=== PATIENT | male | born 1985 ===

== ENCOUNTER 2018-08-05 12:00 | Emergency (ER) | payer SELFPAY ==
[2018-08-05] MEDS ORDERED: NA CHLORIDE 0.9% 1,000 ML ONE ×2 (12:56→15:49)
[2018-08-05 13:05] LABS: Absolute Lymphocytes (CBC) 1.8 K/uL (0.7-4.9); Absolute Monocytes 0.4 K/uL (0.1-1.3); Absolute Neutrophil 4.8 K/uL (1.8-8.0); Basophils % 0.3 % (0-1.3); Eosinophils % 2.5 % (0-4.4); Hematocrit 46.5 % (39.6-49.0); Lymphocytes % 25.1 % (15.3-44.8); MPV 8.5 fL (7.6-11.3); Monocytes % 6.1 % (3.3-12.3); RBC Red Blood Cell Count 5.32 M/uL (4.33-5.43)
[2018-08-05 13:15] LABS: ALT/SGPT 22 U/L (12-78); AST/SGOT 14 U/L (15-37); Albumin 3.9 g/dL (3.4-5.0); Alkaline Phosphatase 57 U/L (45-117); BUN Blood Urea Nitrogen 13 mg/dL (7-18); Bicarbonate 29 mmol/L (21-32); Bilirubin Direct 0.3 mg/dL (0-0.2); Bilirubin Total 1.4 mg/dL (0.2-1.0); Glucose Level 104 mg/dL (74-106); Lipase 74 U/L (73-393); Potassium 3.9 mmol/L (3.5-5.1); Protein, Total 7.2 g/dL (6.4-8.2); Sodium Level 140 mmol/L (136-145)
[2018-08-05] MEDS ORDERED: ONDANSETRON 4 MG/2 ML VIAL ONE (13:26)
[2018-08-05] MEDS ORDERED: MORPHINE 4 MG/ML SYR ONE (13:27)
--- NOTE | 2018-08-05 13:38 | RAD REPORT ---
EXAM DESCRIPTION: CT - Abdomen Pelvis W Contrast - 08/05/2018 1:09 pm CLINICAL HISTORY: Abdominal pain/left upper quadrant pain COMPARISON: none. TECHNIQUE: Computed axial tomography of the abdomen pelvis was obtained. 100 cc Isovue-300 was admin istered intravenously. Oral contrast was not requested which limits evaluation of bowel. All CT scans are performed using dose optimization technique as appropriate and may include automated exposure control or mA/KV adjustment according to patient size. FINDINGS: The liver, spleen, pancreas, adrenal and kidneys appear unremarkable. There is no evidence of diverticulitis. A normal appendix Gallstones without gallbladder wall thickening IMPRESSION: Cholelithiasis without evidence cholecystitis
--- NOTE | 2018-08-05 14:35 | RAD REPORT ---
EXAM DESCRIPTION: CT - Head Brain Wo Cont - 08/05/2018 2:12 pm CLINICAL HISTORY: Dizziness COMPARISON: None. TECHNIQUE: Computed axial tomography of the head was obtained. IV contrast was not requested. All CT scans are performed using dose optimization technique as appropriate and may include automated exposure control or mA/KV adjustment according to patient size. FINDINGS: An intracranial bleed is not seen . The ventricles are normal in caliber. No extra-axial fluid collection is noted. Fluid within the sinuses/ mastoids is not seen. IMPRESSION: No acute intracranial abnormality is seen. If patient's symptoms persist MRI of the bra in would be recommended.
[2018-08-05] MEDS ORDERED: KETOROLAC 30 MG/ML INJ ONE (15:08)
[2018-08-05] MEDS ORDERED: PROMETHAZINE 25 MG/ML VIAL ONE (15:08)
[2018-08-05] MEDS ORDERED: MECLIZINE HCL 12.5 MG TAB ONE ×2 (15:49→16:27)
--- NOTE | 2018-08-05 16:23 | ER ---
Nurse's Notes [facility] Name: Jorgito Clark Age: 32 yrs Sex: Male : 1985 Arrival Date: 08/05/2018 Time: 12:04 Bed 17 Private MD: Diagnosis: Dehydration;Vertigo of central origin Presentation: 08/05 12:15 Presenting complaint: Patient states: HEADACHE, LUQ PAIN, AND GENERALIZED WEAKNESS x1 bp WEEK. Transition of care: patient was not received from another setting of care. Onset of symptoms is unknown. Risk Assessment: Do you want to hurt yourself or someone else? Patient reports no desire to harm self or others. Initial Sepsis Screen: Does the patient meet any 2 criteria? No. Patient's initial sepsis screen is negative. Does the patient have a suspected source of infection? No. Patient's initial sepsis screen is negative. Care prior to arrival: None. 12:15 Method Of Arrival: Ambulatory bp 12:15 Acuity: TRACEY 3 bp Triage Assessment: 12:16 Headache History: Denies prior headaches. General: Appears in no apparent distress. bp comfortable, Behavior is cooperative, appropriate for age, anxious. Pain: Complains of pain in head and abdomen Pain currently is 4 out of 10 on a pain scale. Pain began 2-3 days ago. Also complains of decreased appetite. Neuro: Level of Consciousness is awake, alert, obeys commands, Oriented to person, place, time, situation, Appropriate for age. Historical: - Allergies: 12:16 No Known Allergies; bp - Home Meds: 12:16 None [Active]; bp - PMHx: 12:16 None; bp - Immunization history:: Adult Immunizations. - Social history:: Smoking status: Patient/guardian denies using tobacco. - Ebola Screening: : No symptoms or risks identified at this time. Screenin:50 Abuse screen: Denies threats or abuse. Nutritional screening: No deficits noted. em Tuberculosis screening: No symptoms or risk factors identified. Fall Risk None identified. Assessment: 12:50 General: Appears in no apparent distress. uncomfortable, Behavior is calm, cooperative, em Denies fever. Pain: Complains of pain in left lower quadrant and head Pain currently is 8 out of 10 on a pain scale. Neuro: Level of Consciousness is awake, alert, obeys commands, Oriented to person, place, time, situation, Retail Advertising Sales Manager are equal bilaterally Moves all extremities. Gait is steady, Facial symmetry appears normal, Reports dizziness, headache. Cardiovascular: Capillary refill < 3 seconds Patient's skin is warm and dry. Respiratory: Airway is patent Respiratory effort is even, unlabored, Respiratory pattern is regular, symmetrical. GI: Abdomen is flat, Abd is soft X 4 quads Abdomen is tender to palpation in left lower quadrant. : Reports pain lower quadrant(s) that goes into testicles Denies burning with urination, pain with urination. Derm: Skin is intact, is healthy with good turgor, Skin is pink, warm \T\ dry. Musculoskeletal: Capillary refill < 3 seconds, Range of motion: intact in all extremities. 12:55 General: The previous assessment is accurate, call light remains within reach. ss 13:57 Reassessment: Patient appears in no apparent distress at this time. Patient and/or em family updated on plan of care and expected duration. Pain level reassessed. Patient is alert, oriented x 3, equal unlabored respirations, skin warm/dry/pink. rates pain 4/10 Patient states feeling better. 15:30 Reassessment: Patient appears in no apparent distress at this time. Patient and/or em family updated on plan of care and expected duration. Pain level reassessed. Patient is alert, oriented x 3, equal unlabored respirations, skin warm/dry/pink. reports headache is better, but dizziness has not improved, provider notified, new medication orders received. 16:26 Reassessment: Patient appears in no apparent distress at this time. Patient and/or em family updated on plan of care and expected duration. Pain level reassessed. Patient is alert, oriented x 3, equal unlabored respirations, skin warm/dry/pink. Patient states feeling better. Patient states symptoms have improved. Vital Signs: 12:16 BP 147 / 85; Pulse 77; Resp 16; Temp 98.5; Pulse Ox 100% ; Weight 63.5 kg; Height 5 ft. bp 4 in. (162.56 cm); 13:50 BP 131 / 82; Pulse 66; Resp 16; Temp 98.6(O); Pulse Ox 99% on R/A; mh5 15:07 BP 129 / 83; Pulse 79; Resp 16; Temp 97.9(O); Pulse Ox 99% on R/A; mh5 16:12 BP 133 / 91; Pulse 75; Resp 17; Temp 98.1(O); Pulse Ox 100% on R/A; mh5 12:16 Body Mass Index 24.03 (63.50 kg, 162.56 cm) bp ED Course: 12:04 Patient arrived in ED. tw3 12:12 [facility] nh 12:12 Ze Ortiz MD is Attending Physician. nh 12:16 Triage completed. bp 12:16 Arm band placed on. bp 12:23 Surya Candelario LVN is Primary Nurse. em 12:45 Initial lab(s) drawn, by me, sent to lab. Inserted saline lock: 20 gauge in right em antecubital area, using aseptic technique. Blood collected. 12:50 Patient has correct armband on for positive identification. Bed in low position. Call em light in reach. Adult w/ patient. Pulse ox on. NIBP on. 13:09 CT completed. Patient tolerated procedure well. Patient moved back from CT. bq 13:11 CT Abd/Pelvis - W/Contrast In Process Unspecified. EDMS 14:12 CT completed. Patient tolerated procedure well. Patient moved back from CT. mw3 14:13 CT Head Brain wo Cont In Process Unspecified. EDMS 16:11 EKG done, by ED staff, reviewed by Amy JOSEPH. 5 16:35 No provider procedures requiring assistance completed. IV discontinued, intact, em bleeding controlled, No redness/swelling at site. Pressure dressing applied. Administered Medications: 12:50 Drug: NS 0.9% 1000 ml Route: IV; Rate: 1 bolus; Site: right antecubital; em 14:00 Follow up: IV Status: Completed infusion; IV Intake: 1000ml em 13:20 Drug: Zofran 4 mg Route: IVP; Site: right antecubital; ss 14:08 Follow up: Response: No adverse reaction; Nausea is decreased em 13:22 Drug: morphine 4 mg Route: IVP; Site: right antecubital; ss 14:08 Follow up: Response: No adverse reaction; Pain is decreased em 14:58 Drug: Phenergan 12.5 mg Route: IVP; Site: right antecubital; ss 15:40 Follow up: Response: No adverse reaction em 15:00 Drug: TORadol 30 mg Route: IVP; Site: right antecubital; ss 15:39 Follow up: Response: No adverse reaction; Pain is decreased em 15:40 Drug: NS 0.9% 1000 ml Route: IV; Rate: 1 bolus; Site: right antecubital; em 16:19 Follow up: IV Status: Completed infusion; IV Intake: 1000ml em 15:41 Drug: Meclizine 25 mg Route: PO; em 16:20 Follow up: Response: No adverse reaction em 16:15 Drug: Meclizine 25 mg Route: PO; em 16:38 Follow up: Response: No adverse reaction; Marked relief of symptoms em Intake: 14:00 IV: 1000ml; Total: 1000ml. em 16:19 IV: 1000ml; Total: 2000ml. em Outcome: 16:23 Discharge ordered by MD. nh 16:35 Discharged to home ambulatory, with family. em 16:35 Condition: good 16:35 Discharge instructions given to patient, family, Instructed on discharge instructions, follow up and referral plans. medication usage, Demonstrated understanding of instructions, follow-up care, medications, Prescriptions given X 1. 16:39 Patient left the ED. em Signatures: Dispatcher [employer] EDMS Amy Haider, ONLINE BANKING SPECIALIST ONLINE BANKING SPECIALIST fl Jenny Patel [employer], Surya, SENIOR BUSINESS DEVELOPMENT MANAGER SENIOR BUSINESS DEVELOPMENT MANAGER em Jenna Snyder, RN RN Deana Yousif 5 Fransico, Vivian tw3 Dustin Arnold RN RN bp Willis, Michelle mw3 Corrections: (The following items were deleted from the chart) 13:52 13:50 BP 131 / 82; Pulse 66bpm; Resp 16bpm; Pulse Ox 99% RA; mh5 mh5 16:21 12:50 Neuro: Level of Consciousness is awake, alert, obeys commands, Oriented to em person, place, time, situation, Retail Advertising Sales Manager are equal bilaterally Moves all extremities. Gait is steady, Facial symmetry appears normal, Reports headache Denies dizziness, em 16:22 16:20 Reassessment: reports headache is better, but dizziness is the same em em
--- NOTE | 2018-08-05 16:23 | EDPHYS ---
Physician Documentation [facility] Name: Jorgito Clark Age: 32 yrs Sex: Male : 1985 Arrival Date: 08/05/2018 Time: 12:04 Bed 17 Private MD: ED Physician Ze Ortiz HPI: 08/05 13:45 This 32 yrs old Male presents to ER via Ambulatory with complaints of Headache, nh Abdominal Pain. 14:48 The patient complains of pain to the top of head. nh 16:19 The patient describes the headache as constant. Onset: The symptoms/episode nh began/occurred this morning. Associated signs and symptoms: Pertinent positives: dizziness, nausea. Severity of symptoms: At its worst the pain was mild, in the emergency department the pain has resolved. The symptoms are alleviated by nothing. the symptoms are aggravated by nothing. The patient has not experienced similar symptoms in the past. The patient has not recently seen a physician. Historical: - Allergies: 12:16 No Known Allergies; bp - Home Meds: 12:16 None [Active]; bp - PMHx: 12:16 None; bp - Immunization history:: Adult Immunizations. - Social history:: Smoking status: Patient/guardian denies using tobacco. - Ebola Screening: : No symptoms or risks identified at this time. ROS: 16:19 Constitutional: Negative for fever, chills, and weight loss, Eyes: Negative for injury, nh pain, redness, and discharge, ENT: Negative for injury, pain, and discharge, Neck: Negative for injury, pain, and swelling, Cardiovascular: Negative for chest pain, palpitations, and edema, Respiratory: Negative for shortness of breath, cough, wheezing, and pleuritic chest pain, Back: Negative for injury and pain, : Negative for injury, bleeding, discharge, and swelling, MS/Extremity: Negative for injury and deformity, Skin: Negative for injury, rash, and discoloration, Psych: Negative for depression, anxiety, suicide ideation, homicidal ideation, and hallucinations, Allergy/Immunology: Negative for hives, rash, and allergies, Endocrine: Negative for neck swelling, polydipsia, polyuria, polyphagia, and marked weight changes, Hematologic/Lymphatic: Negative for swollen nodes, abnormal bleeding, and unusual bruising. 16:19 Abdomen/GI: Positive for abdominal pain, nausea and vomiting. 16:19 Neuro: Positive for dizziness, headache. Exam: 16:19 Constitutional: This is a well developed, well nourished patient who is awake, alert, nh and in no acute distress. Head/Face: Normocephalic, atraumatic. Eyes: Pupils equal round and reactive to light, extra-ocular motions intact. Lids and lashes normal. Conjunctiva and sclera are non-icteric and not injected. Cornea within normal limits. Periorbital areas with no swelling, redness, or edema. ENT: Nares patent. No nasal discharge, no septal abnormalities noted. Tympanic membranes are normal and external auditory canals are clear. Oropharynx with no redness, swelling, or masses, exudates, or evidence of obstruction, uvula midline. Mucous membranes moist. Neck: Trachea midline, no thyromegaly or masses palpated, and no cervical lymphadenopathy. Supple, full range of motion without nuchal rigidity, or vertebral point tenderness. No Meningismus. Chest/axilla: Normal chest wall appearance and motion. Nontender with no deformity. No lesions are appreciated. Cardiovascular: Regular rate and rhythm with a normal S1 and S2. No gallops, murmurs, or rubs. Normal PMI, no JVD. No pulse deficits. Respiratory: Lungs have equal breath sounds bilaterally, clear to auscultation and percussion. No rales, rhonchi or wheezes noted. No increased work of breathing, no retractions or nasal flaring. Abdomen/GI: Soft, non-tender, with normal bowel sounds. No distension or tympany. No guarding or rebound. No evidence of tenderness throughout. Back: No spinal tenderness. No costovertebral tenderness. Full range of motion. Skin: Warm, dry with normal turgor. Normal color with no rashes, no lesions, and no evidence of cellulitis. MS/ Extremity: Pulses equal, no cyanosis. Neurovascular intact. Full, normal range of motion. Neuro: Awake and alert, GCS 15, oriented to person, place, time, and situation. Cranial nerves II-XII grossly intact. Motor strength 5/5 in all extremities. Sensory grossly intact. Cerebellar exam normal. Normal gait. Vital Signs: 12:16 BP 147 / 85; Pulse 77; Resp 16; Temp 98.5; Pulse Ox 100% ; Weight 63.5 kg; Height 5 ft. bp 4 in. (162.56 cm); 13:50 BP 131 / 82; Pulse 66; Resp 16; Temp 98.6(O); Pulse Ox 99% on R/A; mh5 15:07 BP 129 / 83; Pulse 79; Resp 16; Temp 97.9(O); Pulse Ox 99% on R/A; mh5 16:12 BP 133 / 91; Pulse 75; Resp 17; Temp 98.1(O); Pulse Ox 100% on R/A; mh5 12:16 Body Mass Index 24.03 (63.50 kg, 162.56 cm) bp MDM: 12:12 Patient medically screened. nh 16:19 Data reviewed: vital signs, nurses notes, lab test result(s), radiologic studies, I nh have discussed the patient's presentation/case with the attending Emergency Department Physician; and as a result, I will discharge patient. Counseling: I had a detailed discussion with the patient and/or guardian regarding: the historical points, exam findings, and any diagnostic results supporting the discharge/admit diagnosis, lab results, radiology results, the need for outpatient follow up, to return to the emergency department if symptoms worsen or persist or if there are any questions or concerns that arise at home. Response to treatment: the patient's symptoms have resolved after treatment. 08/05 12:24 Order name: Basic Metabolic Panel; Complete Time: 13:17 oh 08/05 12:24 Order name: CBC with Diff; Complete Time: 13:08 oh 08/05 12:24 Order name: Creatinine for Radiology; Complete Time: 13:17 oh 08/05 12:24 Order name: Hepatic Function; Complete Time: 13:17 oh 08/05 12:24 Order name: Lipase; Complete Time: 13:17 oh 08/05 12:24 Order name: CT Abd/Pelvis - W/Contrast; Complete Time: 13:43 oh 08/05 13:50 Order name: CT Head Brain wo Cont; Complete Time: 14:39 oh 08/05 12:24 Order name: IV Saline Lock; Complete Time: 12:49 oh 08/05 12:24 Order name: Labs collected and sent; Complete Time: 12:49 oh 08/05 15:40 Order name: EKG - Nurse/Tech; Complete Time: 16:20 em Administered Medications: 12:50 Drug: NS 0.9% 1000 ml Route: IV; Rate: 1 bolus; Site: right antecubital; em 14:00 Follow up: IV Status: Completed infusion; IV Intake: 1000ml em 13:20 Drug: Zofran 4 mg Route: IVP; Site: right antecubital; ss 14:08 Follow up: Response: No adverse reaction; Nausea is decreased em 13:22 Drug: morphine 4 mg Route: IVP; Site: right antecubital; ss 14:08 Follow up: Response: No adverse reaction; Pain is decreased em 14:58 Drug: Phenergan 12.5 mg Route: IVP; Site: right antecubital; ss 15:40 Follow up: Response: No adverse reaction em 15:00 Drug: TORadol 30 mg Route: IVP; Site: right antecubital; ss 15:39 Follow up: Response: No adverse reaction; Pain is decreased em 15:40 Drug: NS 0.9% 1000 ml Route: IV; Rate: 1 bolus; Site: right antecubital; em 16:19 Follow up: IV Status: Completed infusion; IV Intake: 1000ml em 15:41 Drug: Meclizine 25 mg Route: PO; em 16:20 Follow up: Response: No adverse reaction em 16:15 Drug: Meclizine 25 mg Route: PO; em 16:38 Follow up: Response: No adverse reaction; Marked relief of symptoms em Disposition: 08/06 07:59 Co-signature as Attending Physician, Ze Ortiz MD I agree with the assessment and andrew plan of care. Disposition: 08/05/18 16:23 Discharged to Home. Impression: Dehydration, Vertigo of central origin. - Condition is Stable. - Discharge Instructions: Dehydration, Adult. - Prescriptions for Meclizine 25 mg Oral Tablet - take 1 tablet by ORAL route every 8 hours As needed; 30 tablet. - Medication Reconciliation Form, Thank You Letter, Antibiotic Education, Prescription Opioid Use form. - Follow up: Private Physician; When: 5 - 6 days; Reason: Recheck today's complaints. - Problem is new. - Symptoms are unchanged. Signatures: Dispatcher [employer] Ze Paredes MD MD cha Cronk, Niki, BLEACHER LARD BLEACHER LARD oh Surya Candelario, AGENCY APPOINTMENTS SUPERVISOR AGENCY APPOINTMENTS SUPERVISOR em Smirch, Jenna, RN Dusitn Westfall RN RN bp Corrections: (The following items were deleted from the chart) 08/05 16:39 16:23 08/05/2018 16:23 Discharged to Home. Impression: Dehydration; Vertigo of central em origin. Condition is Stable. Forms are Medication Reconciliation Form, Thank You Letter, Antibiotic Education, Prescription Opioid Use. Follow up: Private Physician; When: 5 - 6 days; Reason: Recheck today's complaints. Problem is new. Symptoms are unchanged. nh
--- NOTE | 2018-08-06 07:57 | EKG ---
Test Date: 2018-08-05 Test Time: 15:45:47 Host: KARLA MEASUREMENT RESULTS: Intervals: Rate: 60 MS: 150 QRSD: 96 QT: 390 QTc: 390 [place]: P: 68 MS: 150 QRS: 59 T: 40 INTERPRETIVE STATEMENTS: Normal sinus rhythm Normal ECG No previous ECG available for comparison Electronically Signed On 08-06-18 07:57:02 CDT by Esequiel Dietrich
== END 2018-08-05 16:39 | disposition home or self-care (01) ==
LOC: ER 12:00
DX: E86.0 Dehydration (principal); H81.49 Vertigo of central origin, unspecified ear
CPT/HCPCS: 36415; 70450; 74177; 80048; 80076; 83690; 85025; 93005; 96361; 96374; 96375; 99285; J2405; J2550; J7030; Q9967

== ENCOUNTER 2018-12-01 22:48 | Emergency (ER) | payer SELFPAY ==
[2018-12-02] MEDS ORDERED: MORPHINE 2 MG/ML SYR ONE (00:03)
[2018-12-02] MEDS ORDERED: ONDANSETRON 4 MG/2 ML VIAL ONE (00:03)
[2018-12-02] MEDS ORDERED: NA CHLORIDE 0.9% 1,000 ML ONE (00:04)
[2018-12-02 00:13] LABS: Absolute Lymphocytes (CBC) 2.4 K/uL (0.7-4.9); Basophils % 0.6 % (0-1.3); Hematocrit 43.5 % (39.6-49.0); Lymphocytes % 34.3 % (15.3-44.8); MPV 8.4 fL (7.6-11.3); RBC Red Blood Cell Count 5.04 M/uL (4.33-5.43)
[2018-12-02 00:24] LABS: Potassium 3.3 mmol/L (3.5-5.1)
[2018-12-02 00:27] LABS: Albumin 4.1 g/dL (3.4-5.0)
[2018-12-02 00:29] LABS: Bilirubin Direct 0.4 mg/dL (0-0.2)
[2018-12-02 00:31] LABS: Bilirubin Total 2.2 mg/dL (0.2-1.0); Protein, Total 7.2 g/dL (6.4-8.2)
[2018-12-02 01:18] LABS: Urine Blood TRACE (NEG); Urine Glucose NEGATIVE (NEG); Urine Protein NEGATIVE (NEG); Urine Specific Gravity 1.015 (1.005-1.030); Urine pH 6.5 (5.0-7.0)
--- NOTE | 2018-12-02 03:15 | ER ---
Nurse's Notes [facility] Name: Jorgito Clark Age: 33 yrs Sex: Male : 1985 Arrival Date: 12/01/2018 Time: 23:03 Bed 6 Private MD: Diagnosis: Abdominal and pelvic pain Presentation: 12/01 23:08 Presenting complaint: Patient states: kevin been vomiting with left lower abdominal pain mg2 radiating to the back for 9 days. Transition of care: patient was not received from another setting of care. Onset of symptoms was November 2018. Risk Assessment: Do you want to hurt yourself or someone else? Patient reports no desire to harm self or others. Initial Sepsis Screen: Does the patient meet any 2 criteria? No. Patient's initial sepsis screen is negative. Does the patient have a suspected source of infection? No. Patient's initial sepsis screen is negative. Care prior to arrival: None. 23:08 Method Of Arrival: Ambulatory mg2 23:08 Acuity: TRACEY 3 mg2 Triage Assessment: 23:48 General: Appears in no apparent distress. uncomfortable, Behavior is calm, cooperative, cc3 appropriate for age. Pain: Complains of pain in abdomen. GI: Abdomen is round non-distended. Historical: - Allergies: 23:07 No Known Allergies; mg2 - PSHx: 23:07 None; mg2 - Immunization history:: Adult Immunizations not up to date. - Social history:: Smoking status: Patient/guardian denies using tobacco, Patient/guardian denies using alcohol, street drugs, IV drugs. - Ebola Screening: : No symptoms or risks identified at this time. Screenin:06 Abuse screen: Denies threats or abuse. Denies injuries from another. Nutritional mg2 screening: No deficits noted. Tuberculosis screening: No symptoms or risk factors identified. 23:48 Fall Risk Ambulatory Aid- None/Bed Rest/Nurse Assist (0 pts). Gait- Normal/Bed cc3 Rest/Wheelchair (0 pts) Mental Status- Oriented to own ability (0 pts). Assessment: 23:48 General: Appears in no apparent distress. uncomfortable, Behavior is calm, cooperative, cc3 appropriate for age. Pain: Complains of pain in left side abdomen. Neuro: Level of Consciousness is awake, alert, obeys commands, Oriented to person, place, time, situation, Appropriate for age. Cardiovascular: Denies chest pain, Heart tones S1 S2 present Capillary refill < 3 seconds in bilateral fingers Patient's skin is warm and dry. Rhythm is regular. Respiratory: Airway is patent Respiratory effort is even, unlabored, Respiratory pattern is regular, symmetrical. GI: Abdomen is round non-distended, Bowel sounds present X 4 quads. Abd is soft X 4 quads Abdomen is tender to palpation in left side abdomen. : No signs and/or symptoms were reported regarding the genitourinary system. EENT: No signs and/or symptoms were reported regarding the EENT system. Derm: Skin is intact, is healthy with good turgor, Skin is pink, warm \T\ dry. normal. Musculoskeletal: Circulation, motion, and sensation intact. Range of motion: intact in all extremities. 12/02 00:18 Reassessment: Patient appears in no apparent distress at this time. Patient and/or cc3 family updated on plan of care and expected duration. Pain level reassessed. Patient is alert, oriented x 3, equal unlabored respirations, skin warm/dry/pink. 01:40 Reassessment: Patient appears in no apparent distress at this time. Patient and/or cc3 family updated on plan of care and expected duration. Pain level reassessed. Patient is alert, oriented x 3, equal unlabored respirations, skin warm/dry/pink. Patient taken by network operations center technician to their department by wheelchair. Patient states feeling better. Patient states symptoms have improved. 02:00 Reassessment: Patient appears in no apparent distress at this time. Patient and/or cc3 family updated on plan of care and expected duration. Pain level reassessed. Patient is alert, oriented x 3, equal unlabored respirations, skin warm/dry/pink. Patient came back from CT scan department, awaiting result. 03:00 Reassessment: Patient appears in no apparent distress at this time. Patient and/or cc3 family updated on plan of care and expected duration. Pain level reassessed. Patient is alert, oriented x 3, equal unlabored respirations, skin warm/dry/pink. Hank reassessed the patient with DOLORES Swenson as the staffing consultant and the patient said he is having intermittent scrotal pain for a week. KAI Mcclain said he'll order for an ultrasound for the patient. 03:25 Reassessment: Patient appears in no apparent distress at this time. Patient and/or cc3 family updated on plan of care and expected duration. Pain level reassessed. Patient is alert, oriented x 3, equal unlabored respirations, skin warm/dry/pink. KIA Mcclain didn't order for an ultrasound and discharged the patient home, no prescription given. IV cannula removed and patient left ER vitally stable and ambulatory. No valuables left in the patient's room. Patient states feeling better. Patient states symptoms have improved. Vital Signs: 12/01 23:03 BP 131 / 81; Pulse 77; Resp 18; Temp 98.9; Pulse Ox 99% on R/A; mg2 12/02 00:18 BP 117 / 78; Pulse 66; Resp 17 S; Pulse Ox 97% on R/A; cc3 01:14 BP 123 / 78; Pulse 61; Resp 17 S; Pulse Ox 100% on R/A; cc3 02:18 BP 118 / 73; Pulse 65; Resp 16 S; Pulse Ox 99% on R/A; cc3 03:12 BP 121 / 82; Pulse 63; Resp 16 S; Pulse Ox 100% on R/A; Pain 0/10; cc3 ED Course: 12/01 23:03 Patient arrived in ED. cf2 23:03 Arm band placed on. mg2 23:10 Triage completed. mg2 23:24 Hank Mcclain PA is PHCP. jmm 23:24 Andre Narvaez MD is Attending Physician. jmm 23:48 Maribel Johnson is Primary Nurse. cc3 23:48 Patient has correct armband on for positive identification. Placed in gown. Bed in low cc3 position. Call light in reach. Side rails up X 1. Pulse ox on. NIBP on. 12/02 00:06 Inserted saline lock: 20 gauge in right forearm, using aseptic technique. Blood oe collected. 02:05 CT Abd/Pelvis - IV Contrast Only In Process Unspecified. EDMS 03:14 Teo Gabriel MD is Referral Physician. jmm 03:25 No provider procedures requiring assistance completed. IV discontinued, intact, cc3 bleeding controlled, No redness/swelling at site. Pressure dressing applied. Administered Medications: 00:00 Drug: NS 0.9% 1000 ml Route: IV; Rate: 1 bolus; Site: right antecubital; cc3 01:00 Follow up: Response: No adverse reaction; IV Status: Completed infusion; IV Intake: cc3 1000ml 00:00 Drug: morphine 2 mg {Note: RASS 0.} Route: IVP; Site: right antecubital; cc3 00:30 Follow up: Response: No adverse reaction; Pain is decreased; RASS: Alert and Calm (0) cc3 00:05 Drug: Zofran 4 mg Route: IVP; Site: right antecubital; cc3 00:30 Follow up: Response: No adverse reaction; Nausea is decreased cc3 Intake: 01:00 IV: 1000ml; Total: 1000ml. cc3 Outcome: 03:14 Discharge ordered by MD. fátima 03:25 Discharged to home ambulatory. cc3 03:25 Condition: stable 03:25 Discharge instructions given to patient, Instructed on discharge instructions, follow up and referral plans. Demonstrated understanding of instructions, follow-up care. 03:28 Patient left the ED. cc3 Signatures: Dispatcher [employer] EDMS Hank Mcclain PA PA jmm Espinosa, Orlando oe Gardose, Michele, DOLORES RN mg2 Maribel Johnson cc3 Jh Roche cf2 Corrections: (The following items were deleted from the chart) 12/01 23:08 23:08 General: Appears mg2 mg2 12/02 03:38 03:00 Reassessment: Patient appears in no apparent distress at this time. Patient cc3 and/or family updated on plan of care and expected duration. Pain level reassessed. Patient is alert, oriented x 3, equal unlabored respirations, skin warm/dry/pink. Hank reassessed the patient with DOLORES Swenson as the staffing consultant and the patient said he is having scrotal pain for a week. KAI Mcclain said he'll order for an ultrasound for the patient. cc3 03:38 03:25 Reassessment: Patient appears in no apparent distress at this time. Patient cc3 and/or family updated on plan of care and expected duration. Pain level reassessed. Patient is alert, oriented x 3, equal unlabored respirations, skin warm/dry/pink. KAI Mcclain didn't order for an ultrasound and discharged the patient home, no prescription given. IV cannula removed and patient left ER vitally stable and ambulatory. No valuables left in the patient's room. cc3
--- NOTE | 2018-12-02 03:15 | EDPHYS ---
Physician Documentation [facility] Name: Jorgito Clark Age: 33 yrs Sex: Male : 1985 Arrival Date: 12/01/2018 Time: 23:03 Bed 6 Private MD: ED Physician Andre Narvaez HPI: 12/01 23:48 This 33 yrs old Male presents to ER via Ambulatory with complaints of Abdominal Pain. jmm 23:48 The patient presents with abdominal pain in the lower abdomen. Onset: The jmm symptoms/episode began/occurred gradually, 9 day(s) ago. The symptoms radiate to pelvis. Associated signs and symptoms: Pertinent positives: nausea, testicular pain, Pertinent negatives: diarrhea, fever, vomiting. The symptoms are described as achy, intermittent. Modifying factors: The symptoms are alleviated by nothing, the symptoms are aggravated by nothing. The patient has experienced a previous episode. Historical: - Allergies: 23:07 No Known Allergies; mg2 - PSHx: 23:07 None; mg2 - Immunization history:: Adult Immunizations not up to date. - Social history:: Smoking status: Patient/guardian denies using tobacco, Patient/guardian denies using alcohol, street drugs, IV drugs. - Ebola Screening: : No symptoms or risks identified at this time. ROS: 23:48 Constitutional: Negative for fever, chills, and weight loss, Cardiovascular: Negative jmm for chest pain, palpitations, and edema, Respiratory: Negative for shortness of breath, cough, wheezing, and pleuritic chest pain. 23:48 Abdomen/GI: Positive for abdominal pain. 23:48 : Positive for testicular pain 23:48 All other systems are negative. Exam: 23:48 Constitutional: This is a well developed, well nourished patient who is awake, alert, jmm and in no acute distress. Head/Face: atraumatic. Eyes: EOMI, no conjunctival erythema appreciated ENT: Moist Mucus Membranes Neck: Trachea midline, Supple Chest/axilla: Normal chest wall appearance and motion. Cardiovascular: Regular rate and rhythm. No edema appreciated Respiratory: Normal respirations, no respiratory distress appreciated 23:48 MS/ Extremity: Moves all extremities, no obvious deformities appreciated, no edema noted to the lower extremities Neuro: Awake and alert, normal gait Psych: Behavior is normal, Mood is normal, Patient is cooperative and pleasant 23:48 Abdomen/GI: Inspection: abdomen appears normal, Bowel sounds: normal, Palpation: soft, mild abdominal tenderness, in the left lower quadrant. 23:48 : Male external genitalia: normal, no tenderness, swelling: is not appreciated. Vital Signs: 23:03 BP 131 / 81; Pulse 77; Resp 18; Temp 98.9; Pulse Ox 99% on R/A; mg2 12/02 00:18 BP 117 / 78; Pulse 66; Resp 17 S; Pulse Ox 97% on R/A; cc3 01:14 BP 123 / 78; Pulse 61; Resp 17 S; Pulse Ox 100% on R/A; cc3 02:18 BP 118 / 73; Pulse 65; Resp 16 S; Pulse Ox 99% on R/A; cc3 03:12 BP 121 / 82; Pulse 63; Resp 16 S; Pulse Ox 100% on R/A; Pain 0/10; cc3 MDM: 12/01 23:48 Patient medically screened. [facility] 12/02 03:12 Data reviewed: vital signs, nurses notes. Counseling: I had a detailed discussion with fátima the patient and/or guardian regarding: the historical points, exam findings, and any diagnostic results supporting the discharge/admit diagnosis, radiology results, the need for outpatient follow up, to return to the emergency department if symptoms worsen or persist or if there are any questions or concerns that arise at home. ED course: Pain decreased in the ED. Ct abd and pelvis negative for an acute process. patient advised to follow up gi for reevaluation. patient understood and agrees with the plan of care. . 12/01 23:51 Order name: Basic Metabolic Panel; Complete Time: 00:48 [facility] 12/01 23:51 Order name: CBC with Diff [facility] 12/01 23:51 Order name: Creatinine for Radiology; Complete Time: 00:48 [facility] 12/01 23:51 Order name: Hepatic Function; Complete Time: 00:48 [facility] 12/01 23:51 Order name: Lipase; Complete Time: 00:48 [facility] 12/02 00:54 Order name: Urine Dipstick--Ancillary (enter results); Complete Time: 01:43 12/01 23:51 Order name: IV Saline Lock; Complete Time: 00:10 [facility] 12/01 23:51 Order name: Labs collected and sent; Complete Time: 00:10 [facility] 12/01 23:51 Order name: Urine Dipstick-Ancillary (obtain specimen); Complete Time: 00:51 [facility] 12/01 23:51 Order name: CT Abd/Pelvis - IV Contrast Only [facility] Administered Medications: 00:00 Drug: NS 0.9% 1000 ml Route: IV; Rate: 1 bolus; Site: right antecubital; cc3 01:00 Follow up: Response: No adverse reaction; IV Status: Completed infusion; IV Intake: cc3 1000ml 00:00 Drug: morphine 2 mg {Note: RASS 0.} Route: IVP; Site: right antecubital; cc3 00:30 Follow up: Response: No adverse reaction; Pain is decreased; RASS: Alert and Calm (0) cc3 00:05 Drug: Zofran 4 mg Route: IVP; Site: right antecubital; cc3 00:30 Follow up: Response: No adverse reaction; Nausea is decreased cc3 Disposition: 12/02/18 03:14 Discharged to Home. Impression: Abdominal and pelvic pain. - Condition is Stable. - Discharge Instructions: Abdominal Pain, Adult. - Medication Reconciliation Form, Thank You Letter, Antibiotic Education, Prescription Opioid Use form. - Follow up: Teo Gabriel MD; When: 2 - 3 days; Reason: Recheck today's complaints, Continuance of care, Re-evaluation by your physician. Addendum: 12/04/2018 15:00 Co-signature as Attending Physician, Andre Narvaez MD. g s Signatures: Dispatcher [employer] EDMS Hank Mcclain PA PA [facility] Andre Narvaez MD MD gs Gardose, Michele, RN RN mg2 Cordel, Charlene cc3 Corrections: (The following items were deleted from the chart) 12/02 03:28 03:14 12/02/2018 03:14 Discharged to Home. Impression: Abdominal and pelvic pain. cc3 Condition is Stable. Forms are Medication Reconciliation Form, Thank You Letter, Antibiotic Education, Prescription Opioid Use. Follow up: Teo Gabriel; When: 2 - 3 days; Reason: Recheck today's complaints, Continuance of care, Re-evaluation by your physician. [facility]
[2018-12-02 04:00] VITALS: TEMP 98.9
[2018-12-02 04:02] VITALS: BP 123/78; O2SAT 100
--- NOTE | 2018-12-04 16:46 | RAD REPORT ---
EXAM DESCRIPTION: CT - Abdomen Pelvis W Contrast - 12/02/2018 3:31 am CLINICAL HISTORY: Left-sided abdominal pain. COMPARISON: 08/05/2018 TECHNIQUE: CT scan of the abdomen and pelvis was performed with IV contrast. This exam was performed according to our departmental dose-optimization program, which includes automated exposure control, adjustment of the mA and/or kV according to patient size and/or use of iterative reconstruction techn ique. FINDINGS: The lung bases are clear. No pleural or pericardial effusions. No hiatal hernia. Gallstones are present. Liver, spleen, pancreas, adrenal glands, and kidneys are unremarkable. No hyd ronephrosis or urinary stones are identified. The pelvic organs are also unremarkable. No small bowel obstruction. The appendix is normal. No evidence of acute diverticulitis. No adenopath y, free fluid, or free air is identified. The aorta is normal caliber. The osseous structures are int act. No body wall hernia is seen. IMPRESSION: Gallstones without evidence of acute cholecystitis. Electronically signed by: Francisco Hays MD 12/02/2018 2:38 AM CDT Due to temporary technical issues with the PACS/Fluency reporting system, reports are being signed by the in house radiologist as a courtesy to ensure prompt reporting. The interpreting radiologist is f ully responsible for the content of the report.
== END 2018-12-02 03:28 | disposition home or self-care (01) ==
LOC: ER 22:48
DX: R10.2 Pelvic and perineal pain (principal)
CPT/HCPCS: 36415; 74177; 80048; 80076; 81003; 83690; 85025; 96361; 96374; 96375; 99284; J2270; J2405; J7030; Q9967